=== PATIENT | male | born 2000 | race Hispanic/Latino ===

== ENCOUNTER 2019-11-20 17:36 | Observation (INO) | payer SELFPAY ==
[~2019-11-20 17:36] MED LIST: Iopamidol-370 76% 500 ML 1 ML ONE
[2019-11-20 18:55] LABS: #Eosinphils 0.1 thou/uL (0.0-0.7); #Lymphocytes 1.7 thou/uL (1.20-3.40); #Monocytes 0.6 thou/uL (0.11-0.59); #Neutrophils 8.6 thou/uL (1.40-6.50); %Basophils 0.2 % (0.0-1.0); %Lymphocytes 15.5 % (21.0-51.0); %Monocytes 5.3 % (0.0-10.0); Hemoglobin 14.8 g/dL (14.0-18.0); Mean Corpuscular Hemoglobin 30.5 pg (27.0-31.0); Mean Corpuscular Volume 89.7 fL (78.0-98.0); Mean Platelet Volume 8.7 fL (7.4-10.4); Platelet Count 233 thou/uL (130-400); RBC Distribution Width 11.8 % (11.5-14.5); Red Blood Cell (RBC) Count 4.85 mill/uL (4.70-6.10)
[2019-11-20] MEDS ORDERED: Acetaminophen 500 MG TAB ONE (18:55)
[2019-11-20 19:12] LABS: ALT (SGPT) 51 U/L (8-55); AST (SGOT) 26 U/L (5-34); Albumin 4.5 g/dL (3.5-5.0); Alkaline Phosphatase 73 U/L (40-110); Anion Gap 14 mmol/L (10-20); BUN (Urea Nitrogen) 10 mg/dL (8.9-20.6); Bilirubin, Total 0.8 mg/dL (0.2-1.2); CK (CPK) 160 U/L (30-200); Calc. Creatinine Clearance 0 mL/min (70-130); Calcium 9.6 mg/dL (7.8-10.44); Carbon Dioxide 24 mmol/L (22-29); Chloride 104 mmol/L (98-107); Estimated GFR-MDRD Greater than 90; Glucose 104 mg/dL (70-105); Magnesium 2.2 mg/dL (1.6-2.6); Potassium 3.7 mmol/L (3.5-5.1); Protein, Total 7.5 g/dL (6.0-8.3); Sodium 138 mmol/L (136-145)
--- NOTE | 2019-11-20 20:45 | CT ---
Head CT without contrast 11/20/2019: COMPARISON: None HISTORY: Seizure TECHNIQUE: Axial CT imaging at 5 mm intervals from vertex through skull base without contrast FINDINGS: Imaged paranasal sinuses and mastoid air cells are well aerated. No displaced calvarial fra cture. Incidental note is made of a cavum septum pellucidum. No intracranial hemorrhage, midline shift, mass effect, or ventricular enlargement. IMPRESSION: No acute findings.
[2019-11-20 20:54] LABS: Bilirubin Negative (Negative); Blood, Urine Negative (Negative); Glucose, Urine (Dipstick) Negative (Negative); Leukocyte Negative (Negative); Nitrite Negative (Negative); Protein, Urine (Dipstick) 30 mg/dL (Neg-Trace); Urobilinogen 0.2 mg/dL (Less than 2)
[2019-11-20 20:55] LABS: Clarity Clear (Clear)
[2019-11-20] MEDS ORDERED: levETIRAcetam In NaCl (Iso-Os) 1,500 MG in Premix Bag 1 BAG IVPB SCH (21:00)
[2019-11-20 21:05] LABS: Bacteria/HPF None Seen HPF (None Seen); RBC/HPF 0-3 HPF (0-3); Squamous Epithelial 0-3 HPF (0-3); WBC/HPF 0-3 HPF (0-3)
[2019-11-20 21:47] LABS: Acetaminophen Less than 6.0 mcg/mL (10.0-30.0); Alcohol Less than 10 mg/dL (Less than 10); Salicylate Less than 8.0 mg/dL (15.0-30.0)
[2019-11-20 21:55] LABS: Amphetamine Not Detected (NotDetected); Barbiturates Screen Not Detected (NotDetected); Benzodiazepine Screen Not Detected (NotDetected); Cocaine Metabolite Screen Not Detected (NotDetected); Medtox Control Line Valid? VALID (VALID); Medtox Reader # READER 4; Methadone Not Detected (NotDetected); Methamphetamine Not Detected (NotDetected); Opiate Screen Not Detected (NotDetected); Oxycodone Screen Not Detected (NotDetected); Phencyclidine (PCP) Not Detected (NotDetected); THC/Cannabinoid Screen Not Detected (NotDetected); Tricyclic Screen Not Detected (NotDetected)
--- NOTE | 2019-11-20 22:31 | CT ---
CT angiogram chest: 11/20/2019 COMPARISON: None HISTORY: Seizure, pain, elevated d-dimer TECHNIQUE: Axial CT imaging at 2.5 mm intervals from the thoracic inlet through the upper abdomen wit h IV contrast using CT angiogram protocol with coronal and sagittal 3-D reformatted imaging FINDINGS: Upper abdomen demonstrates diffuse hepatic hypodensity suggesting steatosis. No significant pleural, pericardial, or mediastinal fluid. No axillary, hilar, or mediastinal lymphadenopathy is seen. There is nonspecific mild bilateral upper lobe posterior peripheral groundglass opacity, right greate r than left. There is minimal linear atelectatic change within the posterior inferior aspect of both lower lobes. Evaluation of the pulmonary arterial vasculature demonstrates no central filling defects to suggest t he presence of pulmonary embolism. Evaluation of the distal pulmonary arteries is limited bilaterally secondary to timing of the contrast bolus and patient body habitus. No acute osseous abno rmality. IMPRESSION: No evidence for central acute pulmonary arterial embolism. Nonspecific mild upper lobe gr oundglass opacity which may signify atypical/viral infectious pneumonitis or the sequela of aspiration given recent seizure. Follow-up imaging following treatment advised.
[2019-11-21 02:31] VITALS: BMI 33.9
[2019-11-21] MEDS ORDERED: Lorazepam 2 MG/ML VIAL SLOW IVP PRN (02:52)
[2019-11-21] MEDS ORDERED: Bisacodyl 5 MG TAB PO PRN (12:03)
--- NOTE | 2019-11-21 14:10 | MRI ---
MRI brain noncontrast HISTORY: Seizure. COMPARISON: CT head 11/20/2019. FINDINGS: There is no evidence of acute intracranial hemorrhage or infarct. Large cavum septum pelluc idum is again demonstrated. It measures up to 2.0 cm width by 2.0 cm depth. No edema is apparent. Ventricles are decompressed. There is no mass effect or shift of midline structures. Visualized paranasal sinuses remain well-aera wilber. Coronal images show no focal abnormalities of the symmetric hippocampal formations. IMPRESSION: Congenital/chronic-type findings, including a large cavum septum pellucidum. No acute int racranial abnormalities are demonstrated.
--- NOTE | 2019-11-21 14:16 | HP ---
PRIMARY CARE PROVIDER: [facility]. CHIEF COMPLAINT: Seizure. HISTORY OF PRESENT ILLNESS: Mr. Carrillo is a pleasant 19-year-old gentleman, who was seen at [facility] on November 21, 2019. The patient has a history of seizure disorder. He takes Keppra 500 mg 2 times a day. He reports that he has been compliant with his medications. He reports that he had a seizure yesterday. He is unable to recall the seizure. It appears that he had an unwitnessed seizure. He denies any nausea or vomiting. He denies any chest pain. He denies any headache. REVIEW OF SYSTEMS: All systems were reviewed and found to be negative except for the pertinent positives mentioned above. PAST MEDICAL HISTORY: Seizure disorder. PAST SURGICAL HISTORY: None. SOCIAL HISTORY: Occasional alcohol use, no tobacco use or recreational drug use. ALLERGIES: NO KNOWN DRUG ALLERGIES. CURRENT MEDICATIONS: Keppra 500 mg 2 times a day. PHYSICAL EXAMINATION: GENERAL: On examination, Mr. Carrillo is awake and alert, not in acute distress. VITAL SIGNS: Blood pressure is 100/67, pulse is 91, respiratory rate 14, and oxygen saturation 97% on room air. He is afebrile. EYES: No scleral icterus, no conjunctival pallor. ENT: Moist mucosal membranes. No oropharyngeal erythema or exudates. NECK: Supple, nontender, trachea is midline. RESPIRATORY: Accessory muscles of breathing are not active. Chest wall movements are symmetric bilaterally. LUNGS: Clear to auscultation without wheeze, rhonchi, or crepitations. CARDIOVASCULAR: S1 and S2 are heard, regular. Peripheral pulses palpable. ABDOMEN: Soft, nontender, bowel sounds are heard. NEUROLOGIC: Cranial nerves II through XII are intact. Deep tendon reflexes 2+, plantars downgoing bilaterally. MUSCULOSKELETAL: Power is 5/5 in all 4 extremities. SKIN: No rashes or subcutaneous nodules. LYMPHATIC: No cervical lymphadenopathy. PSYCHIATRIC: Normal mood, normal affect, the patient is oriented to person, place, and time. LABORATORY DATA: Mr. Carrillo's labs and investigations were reviewed. Electrocardiogram shows sinus tachycardia, no ST changes to suggest an acute coronary syndrome. Noncontrast CT scan of the brain did not show any acute intracranial process. CT angiogram of the chest did not show evidence of pulmonary embolus. He has nonspecific mild upper lobe ground-glass opacity, which could be atypical/viral infectious pneumonitis are the sequela of aspiration, according to radiologist. He has normal comprehensive metabolic profile, normal lactic acid, mild leukocytosis, with 11,000 white cells, of which 78% are neutrophils, normal hemoglobin and normal platelet count. D-dimer is elevated at 1.36. Urinalysis is negative for nitrite and leukocyte esterase. Urine toxicology screen is negative. Keppra level is in the therapeutic range at 9.6. ASSESSMENT AND PLAN: Mr. Carrillo is a pleasant 19-year-old gentleman, who was seen at [facility] on November 21, 2019. His problem list includes: 1. Seizure: Mr. Carrillo is presenting with breakthrough seizures. He will be admitted to the hospital for further management. Neurology Service will be consulted for opinion and help with management. 2. Pneumonia: Suspected, based on CT findings. I will start him on empiric antibiotics in the form of doxycycline and Omnicef. Many thanks for allowing me to participate in your patient's care. Please feel free to contact me with any questions or concerns. LEVEL OF RISK: Moderate. LEVEL OF COMPLEXITY: Moderate. Job ID: [id number]
--- NOTE | 2019-11-21 18:52 | CON ---
DATE OF TELEMEDICINE CONSULTATION: 11/21/2019 CHIEF COMPLAINT: Seizure. HISTORY OF PRESENT ILLNESS: The patient and family gave his medical history. The patient has been having seizures in the past. His last seizure was 3 years ago. He is still on Keppra 500 mg twice daily and recently, he has been mostly working late two jobs and not sleeping well and he thinks his lack of sleep and over working might have caused a seizure. He had an unwitnessed seizure and no clear description of seizure was given 2 to us. PREVIOUS MEDICAL HISTORY: History of seizure disorder. PAST SURGICAL HISTORY: None. SOCIAL HISTORY: Occasional alcohol. No smoking or recreational drug use. FAMILY HISTORY: The patient does have family history of seizures in his cousin and sister. ALLERGIES: NO KNOWN DRUG ALLERGIES. MEDICATIONS: At home Keppra 500 mg b.i.d. REVIEW OF SYSTEMS: PULMONARY: Negative for shortness of breath or cough. GI: Negative for nausea, vomiting, or diarrhea. NEUROLOGIC: Positive for history of seizure. OPHTHALMOLOGIC: Negative for vision problems. DERMATOLOGIC: Negative for any skin lesions. HEMATOLOGIC: Negative for any bleeding diathesis. PSYCHIATRIC: Negative for any depression or anxiety. LABORATORY WORKUP: White count 11, hemoglobin 14.8, hematocrit 43.5, platelet count 233. D-dimer 1.36. Chemistry; sodium 138, potassium 3.7, chloride 104, bicarb 24, creatinine 0.84, glucose 104. Liver functions within normal limits. Urinalysis is negative and urine toxicology is also negative and plasma alcohol less than 10. His MRI of the brain was ordered by me this afternoon and the result is reviewed at the time of this dictation. The patient on the MRI has congenital or chronic type findings including a large cavum septum pellucidum. No acute intracranial abnormalities are demonstrated. He has no acute intracranial hemorrhage or infarct. He has a large cavum septum pellucidum, which measures 2 cm width x 2 cm depth. No edema is noted. PHYSICAL EXAMINATION: VITAL SIGNS: Temperature 99, pulse 98, respiratory rate 18, O2 sats 98%, and blood pressure 118/78. GENERAL APPEARANCE: Well-built, well-nourished gentleman. CHEST: Clear vesicular breathing. CARDIOVASCULAR: S1 and S2 heard. No murmurs. ABDOMEN: Soft and nontender. No organomegaly noted. NEUROLOGIC: Higher intellectual functions, normal orientation to time, place, and person. Appropriate conversation. Cranial nerves 2 through 12, normal extraocular movements. Pupils 2 mm, reactive to light bilaterally and no facial asymmetry noted. Normal sensation of face bilaterally and normal hearing bilaterally. Tongue midline. No atrophy noted. Normal elevation of palate. Motor examination; bulk normal, tone normal, strength 5/5 throughout in iliopsoas, hamstrings, quadriceps, ankle dorsiflexion, plantar flexion, deltoid, biceps, triceps, wrist extension and flexion, finger extension and flexion bilaterally. Deep tendon reflexes 2+ were absent throughout and sensory normal to touch bilaterally in upper and lower extremities. Cerebellar, normal [id number] and [id number]. IMPRESSION: The patient is a young man with known history of seizure disorder. 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 He has a neurologist, who has been compliant with his medication. Per family, he is taking Keppra 500 mg b.i.d. His current neurological examination is unremarkable. MRI findings are as noted above. I did request a Keppra level, which is pending. I suggested that he consider increasing the dose of Keppra and both family and the patient declined change in dosage, so I left him on 500 mg b.i.d. for now. RECOMMENDATIONS: Please check the Keppra level result tomorrow. If it is low, reconsider increase of dose of Keppra. The patient is quite reluctant about this idea. He can return to his neurologist and he is ready to be discharged. Job ID: [id number] MTDD
[2019-11-21] MEDS ORDERED: levETIRAcetam 500 MG TAB PO SCH (21:00)
[2019-11-21] MEDS ORDERED: levETIRAcetam In NaCl (Iso-Os) 1,000 MG in Premix Bag 1 BAG IVPB SCH (21:00)
[2019-11-21] MEDS: Doxycycline 100 MG CAP PO SCH (21:09)
[2019-11-21] MEDS: Cefdinir 300 MG CAP PO SCH (21:09)
[2019-11-22] MEDS: Acetaminophen 325 MG TAB PO PRN ×2 (03:42→08:50)
[2019-11-22 04:57] LABS: #Basophils 0.1 thou/uL (0.0-0.2); #Eosinphils 0.2 thou/uL (0.0-0.7); #Lymphocytes 3.3 thou/uL (1.20-3.40); #Monocytes 0.8 thou/uL (0.11-0.59); %Basophils 0.7 % (0.0-1.0); %Eosinophils 2.6 % (0.0-10.0); %Lymphocytes 35.1 % (21.0-51.0); %Monocytes 8.3 % (0.0-10.0); %Neutrophils 53.3 % (42.0-75.0); Hemoglobin 14.7 g/dL (14.0-18.0); Mean Corpuscular Hemoglobin 29.9 pg (27.0-31.0); Mean Corpuscular Volume 90.6 fL (78.0-98.0); Mean Platelet Volume 8.5 fL (7.4-10.4); Platelet Count 227 thou/uL (130-400); RBC Distribution Width 11.8 % (11.5-14.5); Red Blood Cell (RBC) Count 4.93 mill/uL (4.70-6.10); White Blood Cell (WBC) Count 9.5 thou/uL (4.8-10.8)
[2019-11-22 05:17] LABS: Anion Gap 12 mmol/L (10-20); BUN (Urea Nitrogen) 12 mg/dL (8.9-20.6); Calc. Creatinine Clearance 215 mL/min (70-130); Calcium 8.9 mg/dL (7.8-10.44); Carbon Dioxide 26 mmol/L (22-29); Chloride 105 mmol/L (98-107); Estimated GFR-MDRD Greater than 90; Glucose 100 mg/dL (70-105); Potassium 3.9 mmol/L (3.5-5.1); Sodium 139 mmol/L (136-145)
[2019-11-22 07:33] VITALS: BP 104/75; TEMP 97.7
[2019-11-22] MEDS: Cefdinir 300 MG CAP PO SCH (08:48)
[2019-11-22] MEDS: Doxycycline 100 MG CAP PO SCH (08:48)
--- NOTE | 2019-11-22 09:57 | DIS ---
DATE OF ADMISSION: 11/20/2019 DATE OF DISCHARGE: 11/22/2019 PRIMARY CARE PROVIDER: [facility]. DISCHARGE DIAGNOSES: 1. Seizure. 2. Pneumonia. CONDITION OF THE PATIENT ON THE DAY OF DISCHARGE: Stable. I assessed Mr. Carrillo on the day of discharge. He denies any chest pain or shortness of breath. Vital signs are stable. S1 and S2 are heard, regular. Lungs are clear to auscultation bilaterally. CONSULTATIONS DURING THIS HOSPITALIZATION: Neurology, Dr. Leeann Baker. HOSPITAL COURSE: Mr. Carrillo is a pleasant 19-year-old gentleman, who was admitted to [facility] on November 21, 2019 for seizure. He was seen by Neurology Service, who recommended increasing his Keppra dosing. The patient did not wish to increase his Keppra dosing. Keppra level came back at 9.6. He has been advised to follow up with his neurologist in 1 week. He also had CT angiogram done at the time of admission, which ruled out pulmonary embolism, but was suspicious for atypical/viral infectious pneumonitis or sequelae of aspiration. He was started on doxycycline and Omnicef. He is advised to follow up with his primary care provider in 3 days' time for assessment regarding the need for continued antibiotics. He is being discharged to home on 7 days of antibiotics. LABORATORY DATA: On the day of discharge, he has a normal chem-7, white count 9500, hemoglobin 14.7, and platelet count 227,000. DISCHARGE MEDICATIONS: 1. Doxycycline 100 mg two times a day. 2. Omnicef 300 mg two times a day. 3. Keppra 500 mg two times a day. ACTIVITY: As tolerated. DIET: Regular. DISCHARGE DESTINATION: Home. Many thanks for allowing me to participate in your patient's care. Please feel free to contact me with any questions or concerns. Job ID: [id number]
--- NOTE | 2019-11-28 10:15 | EKG ---
Test Reason : Blood Pressure : / mmHG Vent. Rate : 108 BPM Atrial Rate : 108 BPM P-R Int : 122 ms QRS Dur : 102 ms QT Int : 332 ms P-R-T Axes : 050 -09 012 degrees QTc Int : 444 ms Sinus tachycardia Minimal voltage criteria for LVH, may be normal variant Nonspecific T wave abnormality Abnormal ECG Confirmed by JANET DOYLE M.D. ([id number]), story editor JACINTO CISNEROS ([id number]) on 11/28/2019 10:14:27 AM Referred By: Confirmed By:JANET DOYLE M.D.
== END 2019-11-22 10:35 | disposition home or self-care (01) ==
LOC: EDBD 17:36 → ERS 17:36 → 2SE 21:47 → ERS 23:30
PROVIDERS: ADMIT Internal Medicine; ATTEND Internal Medicine
DX: G40.909 Epilepsy, unspecified, not intractable, without status epilepticus (principal); J18.9 Pneumonia, unspecified organism; Z79.899 Other long term (current) drug therapy
CPT/HCPCS: 36415; 36416; 70450; 70551; 71275; 80048; 80053; 80177; 80306; 80307; 81003; 81015; 82550; 83605; 83735; 85025; 85379; 87804; 93005; 94760; 96361; 96365; 96366; G0378; J1953; Q9967

== ENCOUNTER 2023-06-16 15:18 | Emergency (ER) | payer OTHER, SELFPAY ==
[2023-06-16] MEDS ORDERED: Ketorolac Tromethamine 30 MG/ML VIAL ONE (16:43)
[2023-06-16] MEDS ORDERED: levETIRAcetam 500 MG/5 ML VIAL ONE (16:43)
[2023-06-16] MEDS ORDERED: Morphine 4 MG/ML VIAL ONE (17:25)
== END 2023-06-16 18:00 | disposition home or self-care (01) ==
LOC: ERS 15:18
DX: R56.9 Unspecified convulsions (principal); M25.512 Pain in left shoulder
CPT/HCPCS: 96374; 96375; J1885; J1953; J2270